=== PATIENT | female | born 1985 | race Caucasian/White ===

== ENCOUNTER 2019-02-13 12:48 | Emergency (ER) | payer OTHER, SELFPAY ==
[2019-02-13] MEDS ORDERED: Proparacaine 0.5% Opth 15 ML BOT ONE (14:16)
[2019-02-13] MEDS ORDERED: Fluorescein Opthalmic Strip ONE (14:16)
== END 2019-02-13 15:12 | disposition home or self-care (01) ==
LOC: ERS 12:48
DX: T65.891A Toxic effect of other specified substances, accidental (unintentional), initial encounter (principal)
CPT/HCPCS: 99283